=== PATIENT | male | born 1980 | race Two or more races ===

== ENCOUNTER 2021-07-15 14:29 | Emergency (ER) | payer BC, OTHER ==
[~2021-07-15] VITALS: Ht 180.3 cm; Wt 122.5 kg
[2021-07-15 19:08] VITALS: BP 162/106
== END 2021-07-15 21:12 | disposition left against medical advice (07) ==
LOC: ER 14:29 → EDBD 14:29 → ER 21:12
DX: K13.79 Other lesions of oral mucosa (principal); Z53.21 Procedure and treatment not carried out due to patient leaving prior to being seen by health care provider